=== PATIENT | male | born 1965 | race Two or more races ===

== ENCOUNTER 2017-10-13 13:15 | Emergency (ER) | payer OTHER ==
[~2017-10-13] VITALS: Ht 167.6 cm; Wt 74.8 kg
[2017-10-13 13:41] VITALS: BP 145/77
== END 2017-10-13 14:30 | disposition home or self-care (01) ==
LOC: ER 13:22
DX: S59.901A Unspecified injury of right elbow, initial encounter (principal); W18.39XA Other fall on same level, initial encounter; Y93.89 Activity, other specified; Y92.89 Other specified places as the place of occurrence of the external cause; Y99.8 Other external cause status
CPT/HCPCS: 73080; 99284; A4606; Z7610